=== PATIENT | female | born 1950 | race Hispanic/Latino ===

== ENCOUNTER 2019-02-04 19:48 | Emergency (ER) | payer MEDICARE ==
[~2019-02-04] VITALS: Ht 162.6 cm; Wt 86.2 kg
--- OUTSIDE RECORDS SUMMARY | 2019-02-04 19:50 | XMS REPORT | Summary of Care ---
Author Author Chuck Maya M.A. Organization Unknown Address [facility] Phone Unavailable Care Team Providers Care Satellite Specialist Name Role Phone Chuck Maya M.A. Unavailable Unavailable YEH D.O., LUCIUS Unavailable Unavailable DOLORES LOPEZ M.D. Unavailable Unavailable SMITA PHILLIPS Unavailable Unavailable YEH DO [facility], [facility]CI[facility] Unavailable Unavailable Unavailable Unavailable Functional Status Name Dates Details Functional status health issues are not documented Status: Name Dates Details Cognitive status health issues are not documented Status: Problems Name Dates Details Acute URI (465.9, J06.9) Status: Active Contusion of toe of right foot, unspecified toe, initial encounter (924.3, S90.121A) Status: Active Open fracture of phalanx of right third toe, initial encounter (826.1, S92.501B) Status: Active Viral gastroenteritis (008.8, A08.4) Status: Active Need for pneumococcal vaccination (V03.82, Z23) Status: Active Viral bronchitis (466.0, J20.8) Status: Active Colonoscopy refused (V64.2, Z53.20) Status: Active Rash of body (782.1, R21) Status: Active Asthma (493.90, J45.909) Status: Active Allergic rhinitis, seasonal (477.9, J30.2) Status: Active Sore throat (462, J02.9) Status: Active Mammogram declined (V64.2, Z53.20) Status: Active Need for influenza vaccination (V04.81, Z23) Status: Active Benign essential HTN (401.1, I10) Status: Active Diabetes mellitus (250.00, E11.9) Status: Active Need for hepatitis C screening test (V73.89, Z11.59) Status: Active Non-compliance (V15.81, Z91.19) Status: Active Medications Name Dates Details metFORMIN HCl - 500 MG Oral Tablet TAKE 1 TABLET DAILY Quantity: 30 YEH D.O., KAT-KAMAR * Start : 04-Feb-2016 Active Dandy Contour Next EZ w/Device Kit use once daily * Quantity: 1 Refills: 0 JOHN Lizette.Kristi., DOLORES * Start : 11-Feb-2016 Active Dandy Microlet Lancets MISC use once a day * Quantity: 1 Refills: 0 JOHN Lizette.Kristi., DOLORES * Start : 11-Feb-2016 Active 100 Miscellaneous Package Lisinopril 10 MG Oral Tablet TAKE ONE TABLET BY MOUTH DAILY DIRECTED * Quantity: 90 Refills: 1 YEH D.O., LUCIUS * Start : 20-May-2016 Active Microlet Lancets use once a day * Quantity: 30 Refills: 1 YEH D.O., LUCIUS * Start : 20-Aug-2016 Active Mupirocin 2 % External Ointment APPLY AND GENTLY MASSAGE INTO AFFECTED AREA(S) TWICE DAILY * Quantity: 1 Refills: 0 YEH D.O.LUCIUS * Start : 20-Dec-2016 Active 22 GM Tube Ondansetron 4 MG Oral Tablet Disintegrating Dissolve 1 tablet in mouth q8h prn nausea/vomiting * Quantity: 15 Refills: 0 LEDY SMITA Olguin * Start : 17-Jan-2017 Active Glimepiride 4 MG Oral Tablet TAKE ONE TABLET BY MOUTH TWICE A DAY * Quantity: 180 Refills: 1 YEH D.O., LUCIUS * Start : 31-Jan-2017 Active Ipratropium [place] 0.03 % Nasal Solution USE 2 SPRAYS IN EACH NOSTRIL 3 TIMES DAILY NEEDED FOR NASAL CONGESTION * Quantity: 1 Refills: 0 LEDYSMITA ZHONG * Start : 19-Apr-2017 Active 30 ML Bottle Ventolin HFA 108 (90 Base) MCG/ACT Inhalation Aerosol Solution 2 puffs TID x 7-10 days * Quantity: 1 Refills: 0 LEDY SMITA Olguin * Start : 19-Apr-2017 Active 8 GM Inhaler OneTouch Ultra 2 w/Device Kit USE DIRECTED. * Quantity: 1 Refills: 0 YEH D.O.LUCIUS * Start : 07-Jun-2017 Active OneTouch Ultra Blue In Vitro Strip test blood sugar once daily * Quantity: 100 Refills: 0 YEH D.O., VINODN * Start : 12-Dec-2017 Active Jodi Tucker Lancets Fine USE AND DISCARD 1 LANCET DAILY TO MONITOR BLOOD SUGARDX CODE: E11.9 * Quantity: 1 Refills: 1 YEH D.O., KAT-KAMAR * Start : 15-Jun-2017 Active 100 Unit Box Fluticasone Propionate 50 MCG/ACT Nasal Suspension USE 2 SPRAYS IN EACH NOSTRIL ONCE DAILY * Quantity: 1 Refills: 1 YEH D.O., VINODN * Start : 20-Feb-2018 Active 16 GM Bottle Allergies and Adverse Reactions Name Dates Details No Known Drug Allergies (Allergy) Status: Active Procedures Procedure Dates Details [[facility]] MICROALBUMIN, RANDOM URINE (W/CREATININE) Date: 27-Dec-2018 Immunization Name Dates Details Fluzone High-Dose 0.5 ML Intramuscular Suspension Prefilled Syringe on: Dec-2015 Prevnar 13 Intramuscular Suspension on: Jan-2016 Fluzone High-Dose 0.5 ML Intramuscular Suspension Prefilled Syringe Lot #: [id number] on: 31-Jan-2017 Pneumovax 23 25 MCG/0.5ML Injection Injectable Lot #: [id number] on: 31-Jan-2017 Fluzone High-Dose 0.5 ML Intramuscular Suspension Prefilled Syringe Lot #: [id number] on: 01-Feb-2018 Fluzone High-Dose 0.5 ML Intramuscular Suspension Prefilled Syringe Lot #: [id number] on: 27-Dec-2018 Family History Name Dates Details Family history of hypertension (V17.49, Z82.49) Status: Active Social History Name Dates Details - Status: Name Dates Details Never smoker Vital Signs Date Test Result Details [id number] BP Systolic 169 mm[Hg] Status: Comments: Location: LUE; Position: Sitting BP Diastolic 80 mm[Hg] Status: Comments: Location: LUE; Position: Sitting Physical Findings 0 Status: Comments: Alcohol Screen - How many times in the past yr have you had 5 (for M) or 4 (for F) or 4 (for all > 65yrs) or more drinks in a day? Physical Findings 0 Status: Comments: PHQ-9 Adult Depression Screening Temperature 97.8 f Status: Comments: Method: Temporal Weight 182 lb Status: Body Mass Index Calculated 30.29 kg/m2 Status: Body Surface Area Calculated 1.9 m2 Status: Height 65 in Status: Heart Rate 61 /min Status: Respiration Rate 16 /min Status: Results Date Description Value Details :37 [O] Hemoglobin A1c (in office) HEMOGLOBIN A1c 9.0 :02 [] LIPID PANEL WITH REFLEX TO DIRECT LDL CHOLESTEROL, TOTAL 172 mg/dl (Normal) Range: <200 HDL CHOLESTEROL 48 mg/dl (Below low threshold) Range: >50 TRIGLYCERIDES 133 mg/dl (Normal) Range: <150 LDL-CHOLESTEROL 101 {MG/DL__CAL} (Above high threshold) Comments: Reference range: <100 Desirable range <100 mg/dL for primary prevention; <70 mg/dL for patients with CHD or diabetic patients with > or=2 CHD risk factors. LDL-C is now calculated using the Milla calculation, which is a validated novel method providing better accuracy than the Friedewald equation in the estimation of LDL-C. José Miguel SS et al. ION. 2013;310(19): 9311-0280 (http:/ /education.Storee.Apcer[employer]/faq/IJN689) CHOL/HDLC RATIO 3.6 {CALC} (Normal) Range: <5.0 NON HDL CHOLESTEROL 124 {MG/DL__CAL} (Normal) Range: <130 Comments: For patients with diabetes plus 1 major ASCVD risk factor, treating to a non-HDL-C goal of <100 mg/dL (LDL-C of <70 mg/dL) is considered a therapeutic option. :02 [[facility]] MICROALBUMIN, RANDOM URINE (W/CREATININE) Comments: Reference RangeNot established CREATININE, RANDOM URINE 59 mg/dl (Normal) Range: 20-275 MICROALBUMIN 1.2 mg/dl (Normal) Comments: Reference RangeNot established MICROALBUMIN/CREATININE RATIO, RANDOM URINE 20 {MCG/MG_CRE} (Normal) Range: <30 Comments: The ADA defines abnormalities in albuminexcretion as follows: Category Result (mcg/mg creatinine) Normal <30Microalbuminuria 30-299 Clinical albuminuria > OM=983 The ADA recommends that at least two of threespecimens collected within a 3-6 month period beabnormal before considering a patient to bewithin a diagnostic category. :02 [[facility]] CMP W/EGFR GLUCOSE 176 mg/dl (Above high threshold) Range: 65-99 Comments: Fasting reference interval For someone without known diabetes, a glucosevalue >125 mg/dL indicates that they may havediabetes and this should be confirmed with afollow-up test. UREA NITROGEN (BUN) 11 mg/dl (Normal) Range: 7-25 CREATININE 0.63 mg/dl (Normal) Range: 0.50-0.99 Comments: For patients >49 years of age, the reference limitfor Creatinine is approximately 13% higher for peopleidentified as -[place]. eGFR NON- 92 {ML/MIN/1.7} (Normal) Range: > OR=60 eGFR 106 {ML/MIN/1.7} (Normal) Range: > OR=60 BUN/CREATININE RATIO NOT APPLICABLE {CALC} Range: 6-22 SODIUM 138 mmol/L (Normal) Range: 135-146 POTASSIUM 4.8 mmol/L (Normal) Range: 3.5-5.3 CHLORIDE 105 mmol/L (Normal) Range: 98-110 CARBON DIOXIDE 25 mmol/L (Normal) Range: 20-32 CALCIUM 9.7 mg/dl (Normal) Range: 8.6-10.4 PROTEIN, TOTAL 7.3 g/dl (Normal) Range: 6.1-8.1 ALBUMIN 4.3 g/dl (Normal) Range: 3.6-5.1 GLOBULIN 3.0 {G/DL__CALC} (Normal) Range: 1.9-3.7 ALBUMIN/GLOBULIN RATIO 1.4 {CALC} (Normal) Range: 1.0-2.5 BILIRUBIN, TOTAL 0.5 mg/dl (Normal) Range: 0.2-1.2 ALKALINE PHSPHATASE 87 u/l (Normal) Range: 33-130 AST 15 u/l (Normal) Range: 10-35 ALT 17 u/l (Normal) Range: 627-Dec-201811:02 [[facility]] CBC (INCLUDES DIFF/PLT) WHITE BLOOD CELL COUNT 8.8 {Thousand/u} (Normal) Range: 3.8-10.8 RED BLOOD CELL COUNT 4.45 {Million/uL} (Normal) Range: 3.80-5.10 HEMAGLOBIN 11.8 g/dl (Normal) Range: 11.7-15.5 HEMATOCRIT 35.5 % (Normal) Range: 35.0-45.0 MCV 79.8 fL (Below low threshold) Range: 80.0-100.0 MCH 26.5 pg (Below low threshold) Range: 27.0-33.0 MCHC 33.2 g/dl (Normal) Range: 32.0-36.0 RDW 12.9 % (Normal) Range: 11.0-15.0 PLATELET COUNT 406 {Thousand/u} (Above high threshold) Range: 140-400 MPV 9.4 fL (Normal) Range: 7.5-12.5 ABSOLUTE NEUTROPHILS 5324 {cells/uL} (Normal) Range: 7975-3984 ABSOLUTE LYMPHOCYTES 2675 {cells/uL} (Normal) Range: 850-3900 ABSOLUTE MONOCYTES 598 {cells/uL} (Normal) Range: 200-950 ABSOLUTE EOSINOPHILS 150 {cells/uL} (Normal) Range: 15-500 ABSOLUTE BASOPHILS 53 {cells/uL} (Normal) Range: 0-200 NEUTROPHILS 60.5 % (Normal) LYMPHOCYTES 30.4 % (Normal) MONOCYTES 6.8 % (Normal) EOSINOPHILS 1.7 % (Normal) BASOPHILS 0.6 % (Normal) [id number] [[facility]] HEPATITIS C ANTIBODY HEPATITIS C ANTIBODY NON-REACTIVE (Normal) Range: NON-REACTIVE SIGNAL TO CUT-OFF 0.07 (Normal) Range: <1.00 Comments: HCV antibody was non-reactive. There is no laboratory evidence of HCV infection. In most cases, no further action is required. However,if recent HCV exposure is suspected, a test for HCV RNA(test code 29701) is suggested. For additional information please refer tohttp://education.[employer]/faq/JTC19k3(This link is being provided for informational/educational purposes only.) [id number] [[facility]] TSH, 3RD GENERATION W/REFLEX TO FT4 Comments: REPORT COMMENT:FASTING:YES TSH, 3RD GENERATION W/REFLEX TO FT4 1.33 {MIU/L} (Normal) Range: 0.40-4.50 Plan of Care Name Dates Details Planned Observations Planned Goals not documented Planned Encounters Appointment; LUCIUS OWENS D.O. On: 24-Jan-2019 10:00 Instructions Name Dates Details Instructions not documented Encounters Appointment; ANDREA MARQUEZ M.D. Encounter Diagnosis: Problem not documented On: 03-Jan-2017 9:15 Appointment; ANDREA MARQUEZ M.D. Encounter Diagnosis: Problem not documented On: 17-Jan-2017 9:15 Appointment; LUCIUS OWENS D.O. Encounter Diagnosis: Problem not documented On: 17-Jan-2017 13:15 Appointment; SMITA VILLAFANA P.A. Encounter Diagnosis: Problem not documented On: 17-Jan-2017 14:00 Appointment; LUCIUS OWENS D.O. Encounter Diagnosis: Problem not documented On: 31-Jan-2017 13:00 Appointment; ANDREA MARQUEZ M.D. Encounter Diagnosis: Problem not documented On: 14-Feb-2017 9:15 Appointment; SMITA VILLAFANA P.A. Encounter Diagnosis: Problem not documented On: 19-Apr-2017 12:00 Appointment; LUCIUS OWENS D.O. Encounter Diagnosis: Problem not documented On: 03-May-2017 13:00 Appointment; LUCIUS OWENS D.O. Encounter Diagnosis: Problem not documented On: 01-Feb-2018 15:30 Appointment; LUCIUS OWENS D.O. Encounter Diagnosis: Problem not documented On: 20-Feb-2018 9:30 Appointment; LUCIUS OWENS D.O. Encounter Diagnosis: Problem not documented On: 27-Dec-2018 10:00
[2019-02-04] MEDS ORDERED: CLONIDINE HCL 0.1 MG TAB PO ONE (21:00)
[2019-02-04] MEDS ORDERED: LISINOPRIL 10 MG TAB PO ONE (21:30)
[2019-02-04 21:38] LABS: BASOPHILS # (AUTO) 0.1 (0.0-0.1); BASOPHILS % 0.4 % (0.0-1.0); EOSINOPHILS # (AUTO) 0.2 (0.0-0.4); EOSINOPHILS % 1.6 % (0.0-6.0); HEMATOCRIT 34.5 % (34.2-44.1); HEMOGLOBIN 11.3 g/dL (12.0-16.0); LYMPHOCYTES # (AUTO) 2.6 (1.0-3.2); LYMPHOCYTES % 21.6 % (18.0-39.1); MEAN CORPUSCULAR HEMOGLOBIN 26.5 pg (28-32); MEAN CORPUSCULAR HGB CONC 32.8 g/dL (31-35); MEAN CORPUSCULAR VOLUME 80.8 fL (81-99); MONOCYTES # (AUTO) 0.8 (0.2-0.8); NEUTROPHILS # (AUTO) 8.2 (2.1-6.9); NEUTROPHILS % 69.1 % (38.7-80.0); PLATELET COUNT 327 x10e3/uL (140-360); RED BLOOD COUNT 4.27 x10e6/uL (3.6-5.1); RED CELL DISTRIBUTION WIDTH 12.7 % (11.7-14.4)
[2019-02-04 21:53] LABS: ALANINE AMINOTRANSFERASE 16 IU/L (0-55); ALBUMIN 3.7 g/dL (3.5-5.0); ALBUMIN/GLOBULIN RATIO 0.9 (0.8-2.0); ALKALINE PHOSPHATASE 82 IU/L (40-150); BLOOD UREA NITROGEN 16 mg/dL (7-26); BUN/CREATININE RATIO 21 (6-25); CALCIUM 9.9 mg/dL (8.4-10.2); CARBON DIOXIDE 25 mmol/L (22-29); CHLORIDE 101 mmol/L (98-107); CREATININE, SERUM 0.75 mg/dL (0.57-1.11); EST GLOMERULAR FILTRATION RATE > 60 ML/MIN (60-); GLUCOSE 214 mg/dL (74-118); SODIUM 135 mmol/L (136-145)
[2019-02-04 23:51] VITALS: BP 129/44
== END 2019-02-04 23:58 | disposition home or self-care (01) ==
LOC: ER 19:48
DX: H10.023 Other mucopurulent conjunctivitis, bilateral (principal); I10 Essential (primary) hypertension; E11.9 Type 2 diabetes mellitus without complications
CPT/HCPCS: 36415; 80053; 85025; 99283

== ENCOUNTER 2021-07-14 14:25 | Emergency (ER) | payer MEDICARE, OTHER ==
[~2021-07-14] VITALS: Ht 162.6 cm; Wt 86.2 kg
[2021-07-14] MEDS ORDERED: IBUPROFEN 600 MG TAB PO STA (16:10)
== END 2021-07-14 16:55 | disposition home or self-care (01) ==
LOC: ER 16:50
DX: M79.605 Pain in left leg (principal); W01.0XXA Fall on same level from slipping, tripping and stumbling without subsequent striking against object, initial encounter; Y93.01 Activity, walking, marching and hiking; Y92.89 Other specified places as the place of occurrence of the external cause; E11.9 Type 2 diabetes mellitus without complications
CPT/HCPCS: 99282

== ENCOUNTER 2021-10-03 13:12 | Emergency (ER) | payer OTHER ==
[~2021-10-03] VITALS: Ht 162.6 cm; Wt 86.2 kg
[2021-10-03] MEDS ORDERED: NAPROXEN250 MG PO (14:49)
[2021-10-03 15:00] VITALS: BP 145/66
== END 2021-10-03 15:01 | disposition home or self-care (01) ==
LOC: ER 13:21
DX: M25.511 Pain in right shoulder (principal); R07.81 Pleurodynia; W01.0XXA Fall on same level from slipping, tripping and stumbling without subsequent striking against object, initial encounter; Y93.01 Activity, walking, marching and hiking; Y92.89 Other specified places as the place of occurrence of the external cause; E11.9 Type 2 diabetes mellitus without complications
CPT/HCPCS: 71101; 99283

== ENCOUNTER 2021-10-21 11:56 | Emergency (ER) | payer MEDICARE, OTHER ==
[~2021-10-21] VITALS: Ht 162.6 cm; Wt 86.2 kg
[~2021-10-21 11:56] MED LIST: NAPROXEN250 MG PO
[2021-10-21 12:42] LABS: BASOPHILS # (AUTO) 0.1 (0.0-0.1); BASOPHILS % 0.5 % (0.0-1.0); EOSINOPHILS # (AUTO) 0.1 (0.0-0.4); EOSINOPHILS % 0.9 % (0.0-6.0); HEMATOCRIT 24.9 % (34.2-44.1); LYMPHOCYTES # (AUTO) 2.7 (1.0-3.2); LYMPHOCYTES % 17.8 % (18.0-39.1); MEAN CORPUSCULAR HEMOGLOBIN 25.8 pg (28-32); MEAN CORPUSCULAR HGB CONC 32.1 g/dL (31-35); MEAN CORPUSCULAR VOLUME 80.3 fL (81-99); MONOCYTES # (AUTO) 0.9 (0.2-0.8); MONOCYTES % 5.8 % (4.4-11.3); NEUTROPHILS # (AUTO) 11.4 (2.1-6.9); NEUTROPHILS % 74.2 % (38.7-80.0); PLATELET COUNT 454 x10e3/uL (140-360); RED CELL DISTRIBUTION WIDTH 13.6 % (11.7-14.4)
[2021-10-21 12:58] LABS: ALBUMIN 3.6 g/dL (3.5-5.0); ALBUMIN/GLOBULIN RATIO 0.9 (0.8-2.0); ANION GAP 14.5 mmol/L (8-16); CALCIUM 10.5 mg/dL (8.4-10.2); CREATININE, SERUM 0.82 mg/dL (0.57-1.11); POTASSIUM 4.5 mmol/L (3.5-5.1)
== END 2021-10-21 14:07 | disposition home or self-care (01) ==
LOC: ER 11:58
DX: R06.02 Shortness of breath (principal); E11.65 Type 2 diabetes mellitus with hyperglycemia; I10 Essential (primary) hypertension; K21.9 Gastro-esophageal reflux disease without esophagitis
CPT/HCPCS: 36415; 71045; 80053; 83880; 84484; 85025; 85379; 93005; 99283

== ENCOUNTER 2023-01-19 18:17 | Inpatient (IN) | payer MEDICARE ==
[~2023-01-19] VITALS: Ht 157.5 cm; Wt 86.2 kg
[2023-01-19 18:40] LABS: BASOPHILS # (AUTO) 0.1 (0.0-0.1); BASOPHILS % 0.6 % (0.0-1.0); EOSINOPHILS # (AUTO) 0.3 (0.0-0.4); EOSINOPHILS % 2.8 % (0.0-6.0); HEMATOCRIT 32.1 % (34.2-44.1); HEMOGLOBIN 10.9 g/dL (12.0-16.0); LYMPHOCYTES # (AUTO) 3.1 (1.0-3.2); MEAN CORPUSCULAR HEMOGLOBIN 25.8 pg (28-32); MEAN CORPUSCULAR VOLUME 76.1 fL (81-99); MONOCYTES # (AUTO) 0.7 (0.2-0.8); MONOCYTES % 6.7 % (4.4-11.3); NEUTROPHILS # (AUTO) 6.4 (2.1-6.9); NEUTROPHILS % 60.4 % (38.7-80.0); PLATELET COUNT 465 x10e3/uL (140-360); RED BLOOD COUNT 4.22 x10e6/uL (3.6-5.1); RED CELL DISTRIBUTION WIDTH 12.1 % (11.7-14.4); WHITE BLOOD COUNT 10.53 x10e3/uL (4.8-10.8)
[2023-01-19 18:58] LABS: ALANINE AMINOTRANSFERASE 15 IU/L (0-55); ALBUMIN 4.5 g/dL (3.5-5.0); ALBUMIN/GLOBULIN RATIO 1.2 (0.8-2.0); ALKALINE PHOSPHATASE 91 IU/L (40-150); ANION GAP 16.8 mmol/L (8-16); BLOOD UREA NITROGEN 19 mg/dL (7-26); BUN/CREATININE RATIO 22 (6-25); CALCIUM 9.9 mg/dL (8.4-10.2); CARBON DIOXIDE 20 mmol/L (22-29); CHLORIDE 91 mmol/L (98-107); CREATINE KINASE 290 IU/L (29-168); CREATININE, SERUM 0.85 mg/dL (0.57-1.11); GLUCOSE 103 mg/dL (74-118); MAGNESIUM 1.6 MG/DL (1.3-2.1); POTASSIUM 4.8 mmol/L (3.5-5.1); SODIUM 123 mmol/L (136-145)
[2023-01-19] MEDS ORDERED: ONDANSETRON HCL INJ 2MG/ML 2ML 2 MG/ML VIAL IV PRN (19:15)
[2023-01-19] MEDS ORDERED: DEXTROSE 50% SYRINGE 50 ML IV PRN (19:15)
[2023-01-19] MEDS: SODIUM CHLORIDE 0.9% 1000ML 1,000 ML IV SCH (19:28)
[2023-01-19] MEDS ORDERED: HYDRALAZINE HCL 20 MG/ML VIAL IV PRN (19:45)
[2023-01-19] MEDS ORDERED: TRAMADOL HCL 50 MG TAB PO PRN (20:00)
[2023-01-19 20:40] VITALS: BP 142/61; PULSE 79; RESP 17; TEMP 98.4; O2SAT 99
[2023-01-19 21:00] VITALS: BP 142/61; PULSE 79; RESP 17; TEMP 98.4; O2SAT 99
[2023-01-19] MEDS: INSULIN REGULAR, HUMAN 100 UNIT/1 ML SQ SCH (21:00)
[2023-01-19 21:21] VITALS: BP 142/61; PULSE 79; RESP 17; TEMP 98.4; O2SAT 99
[2023-01-19] MEDS ORDERED: ATORVASTATIN CA20 MG PO (22:17)
[2023-01-19] MEDS ORDERED: METFORMIN HCL500 MG PO (22:17)
[2023-01-19] MEDS ORDERED: LISINOPRIL10 MG PO (22:17)
[2023-01-19] MEDS ORDERED: GLIMEPIRIDE4 MG PO (22:17)
[2023-01-19] MEDS ORDERED: HYDROCHLOROTH12.5 MG PO (22:17)
[2023-01-19] MEDS ORDERED: ASPIRIN81 MG PO (22:17)
[2023-01-20] VITALS (8 sets, daily range): BP systolic 130–145; BP diastolic 57–64; PULSE 64–72; RESP 13–19; TEMP 97.8–98.3; O2SAT 97–100
[2023-01-20 07:18] LABS: BASOPHILS # (AUTO) 0.1 (0.0-0.1); BASOPHILS % 0.7 % (0.0-1.0); EOSINOPHILS # (AUTO) 0.2 (0.0-0.4); EOSINOPHILS % 1.9 % (0.0-6.0); HEMATOCRIT 29.7 % (34.2-44.1); HEMOGLOBIN 9.6 g/dL (12.0-16.0); LYMPHOCYTES # (AUTO) 2.3 (1.0-3.2); LYMPHOCYTES % 22.2 % (18.0-39.1); MEAN CORPUSCULAR HEMOGLOBIN 26.7 pg (28-32); MEAN CORPUSCULAR HGB CONC 32.3 g/dL (31-35); MEAN CORPUSCULAR VOLUME 82.7 fL (81-99); MONOCYTES # (AUTO) 0.9 (0.2-0.8); MONOCYTES % 8.6 % (4.4-11.3); PLATELET COUNT 327 x10e3/uL (140-360); RED BLOOD COUNT 3.59 x10e6/uL (3.6-5.1); RED CELL DISTRIBUTION WIDTH 12.5 % (11.7-14.4); WHITE BLOOD COUNT 10.54 x10e3/uL (4.8-10.8)
[2023-01-20] MEDS: INSULIN REGULAR, HUMAN 100 UNIT/1 ML SQ SCH ×4 (07:30→21:00)
[2023-01-20 07:53] LABS: ALBUMIN 3.6 g/dL (3.5-5.0); ALBUMIN/GLOBULIN RATIO 1.1 (0.8-2.0); ANION GAP 14.1 mmol/L (8-16); CALCIUM 9.5 mg/dL (8.4-10.2); CREATININE, SERUM 0.74 mg/dL (0.57-1.11); POTASSIUM 5.1 mmol/L (3.5-5.1)
[2023-01-20] MEDS: SODIUM CHLORIDE 0.9% 1000ML 1,000 ML IV SCH ×2 (08:35→22:18)
[2023-01-20] MEDS ORDERED: ACETAMINOPHEN 325 MG TAB PO PRN (10:45)
[2023-01-20 14:19] LABS: CLARITY,URINE CLEAR (CLEAR); COLOR,URINE YELLOW (YELLOW); KETONES,URINE NEGATIVE (NEGATIVE); LEUKOCYTE ESTERASE ,URINE TRACE (NEGATIVE); NITRITE,URINE NEGATIVE (NEGATIVE); PROTEIN,URINE DIPSTICK NEGATIVE (NEGATIVE); URINE UROBILINOGEN 0.2 mg/dL (0.2 - 1)
[2023-01-20 14:34] LABS: EPITHELIAL CELLS,URINE RARE /LPF; WBC,URINE (MAN) 0-5 /HPF (0-5)
[2023-01-21 00:40] VITALS: BP 128/59; PULSE 70; RESP 17; TEMP 98.1; O2SAT 100
[2023-01-21 04:43] VITALS: BP 133/56; PULSE 70; RESP 17; TEMP 98.2; O2SAT 98
[2023-01-21 06:26] LABS: BASOPHILS # (AUTO) 0.1 (0.0-0.1); BASOPHILS % 0.5 % (0.0-1.0); EOSINOPHILS # (AUTO) 0.3 (0.0-0.4); EOSINOPHILS % 3.2 % (0.0-6.0); HEMATOCRIT 27.8 % (34.2-44.1); HEMOGLOBIN 9.2 g/dL (12.0-16.0); LYMPHOCYTES # (AUTO) 2.8 (1.0-3.2); LYMPHOCYTES % 29.7 % (18.0-39.1); MEAN CORPUSCULAR HEMOGLOBIN 25.9 pg (28-32); MEAN CORPUSCULAR HGB CONC 33.1 g/dL (31-35); MEAN CORPUSCULAR VOLUME 78.3 fL (81-99); MONOCYTES # (AUTO) 0.9 (0.2-0.8); MONOCYTES % 9.1 % (4.4-11.3); NEUTROPHILS # (AUTO) 5.4 (2.1-6.9); NEUTROPHILS % 57.1 % (38.7-80.0); PLATELET COUNT 426 x10e3/uL (140-360); RED BLOOD COUNT 3.55 x10e6/uL (3.6-5.1); RED CELL DISTRIBUTION WIDTH 12.5 % (11.7-14.4); WHITE BLOOD COUNT 9.54 x10e3/uL (4.8-10.8)
[2023-01-21 06:44] LABS: ANION GAP 12.8 mmol/L (8-16); CALCIUM 8.9 mg/dL (8.4-10.2); CREATININE, SERUM 0.82 mg/dL (0.57-1.11); POTASSIUM 4.8 mmol/L (3.5-5.1)
[2023-01-21] MEDS: INSULIN REGULAR, HUMAN 100 UNIT/1 ML SQ SCH ×2 (07:30→11:30)
[2023-01-21 08:00] VITALS: BP 144/55; PULSE 72; RESP 20; TEMP 98.1; O2SAT 100
[2023-01-21] MEDS ORDERED: LISINOPRIL 10 MG TAB PO SCH (09:00)
[2023-01-21] MEDS ORDERED: ATORVASTATIN 20 MG TAB PO SCH (09:00)
[2023-01-21] MEDS ORDERED: ASPIRIN 81 MG CHEW TAB PO SCH (09:00)
[2023-01-21 10:01] VITALS: BP 144/55; PULSE 72; RESP 20; TEMP 98.1; O2SAT 100
[2023-01-21 10:22] VITALS: BP 144/55
[2023-01-21] MEDS: SODIUM CHLORIDE 0.9% 1000ML 1,000 ML IV SCH (10:22)
[2023-01-21] MEDS ORDERED: ONDANSETRON HCL 4 MG ORAL DISINTEGRATING TAB PO PRN (12:45)
[2023-01-21] MEDS ORDERED: ENOXAPARIN SOD INJ 40 MG/0.4 ML SYR SC SCH (17:00)
== END 2023-01-21 16:55 | disposition home or self-care (01) | DRG 640 ==
LOC: ER 18:21 → ERHOLD 19:09 → MED/SURG3 20:15
PROVIDERS: ADMIT Internal Medicine; ATTEND Internal Medicine
DX: E87.1 Hypo-osmolality and hyponatremia (principal); U07.1 COVID-19; I10 Essential (primary) hypertension; E11.9 Type 2 diabetes mellitus without complications; E78.00 Pure hypercholesterolemia, unspecified; K21.9 Gastro-esophageal reflux disease without esophagitis; Z90.49 Acquired absence of other specified parts of digestive tract
CPT/HCPCS: 36415; 71045; 80048; 80053; 81001; 82550; 82948; 83735; 83935; 84484; 85025; 93005; 99284; J7030; U0002